=== PATIENT | female | born 1960 | race Caucasian/White ===

== ENCOUNTER → 2016-11-04 | Outpatient (CLI) | payer BC ==
[~2016-11-04] MED LIST: ASPIRIN EC81 MG PO; CLARITIN10 MG PO; FLONASE 50 MCG/16 GM NOSE; MOBIC15 MG PO; ULTRAM50 MG PO; ZYRTEC10 MG PO
== END | disposition disaster alternative care site (69) ==
LOC: GRAD 07:32
DX: M25.562 Pain in left knee (principal); M25.462 Effusion, left knee; M94.8X6 Other specified disorders of cartilage, lower leg; S83.282A Other tear of lateral meniscus, current injury, left knee, initial encounter; X58.XXXA Exposure to other specified factors, initial encounter